=== PATIENT | male | born 1985 | race Hispanic/Latino ===

== ENCOUNTER 2017-01-31 08:57 | Emergency (ER) | payer OTHER ==
[2017-01-31 09:01] VITALS: BMI 27.6
[2017-01-31 09:03] VITALS: BP 124/54; PULSE 56; RESP 20; TEMP 97.8; O2SAT 98
--- NOTE | 2017-01-31 09:56 | ED PDOC ---
HPI: Abdomen Time Seen by Provider: 01/31/17 09:21 Chief Complaint (Nursing): Abdominal Pain History Per: Patient History/Exam Limitations: no limitations Onset/Duration Of Symptoms: Sudden Onset (just tpa) Current Symptoms Are (Timing): Still Present Severity: Moderate Location Of Pain/Discomfort: LLQ Quality Of Discomfort: Sharp Associated Symptoms: denies: Fever, Chills, Nausea, Vomiting, Diarrhea, Loss Of Appetite, Back Pain, Chest Pain, Constipation, Urinary Symptoms Exacerbating Factors: None Alleviating Factors: None Additional History Per: Patient Additional Complaint(s): Pt to ER c/o left flank and abdominal pain; sudden onset 30 minutes prior to arrival in ER. Pt denies any N/V/D or fever; pt denies any pain with urination. no trauma Past Medical History Reviewed: Historical Data, Nursing Documentation, Vital Signs Vital Signs: Last Vital Signs Temp 97.8 F 01/31/17 09:26 Pulse 56 L 01/31/17 09:26 Resp 20 01/31/17 09:26 BP 124/54 L 01/31/17 09:26 Pulse Ox 98 01/31/17 09:56 - Medical History PMH: No Chronic Diseases - Surgical History Surgical History: No Surg Hx - Family History Family History: States: Unknown Family Hx - Home Medications Home Medications: Ambulatory Orders Medication Instructions Recorded Tamsulosin [Flomax] 0.4 mg PO DAILY #20 cap 01/31/17 oxyCODONE/Acetaminophen [Percocet 1 ea PO QID PRN #20 tab 01/31/17 5/325 mg Tab] - Allergies Allergies/Adverse Reactions: Allergies Allergy/AdvReac Type Severity Reaction Status Date / Time No Known Allergies Allergy Verified 01/31/17 09:42 Review of Systems ROS Statement: Except As Marked, All Systems Reviewed And Found Negative Constitutional: Negative for: Fever, Chills Cardiovascular: Negative for: Chest Pain, Palpitations Respiratory: Negative for: Cough, Shortness of Breath Gastrointestinal: Positive for: Abdominal Pain. Negative for: Nausea, Vomiting , Diarrhea Genitourinary Male: Negative for: Dysuria, Penile Discharge, Scrotal Pain, Rash , Penile Pain Neurological: Negative for: Weakness, Numbness Physical Exam - Reviewed Nursing Documentation Reviewed: Yes Vital Signs Reviewed: Yes - Physical Exam Appears: Positive for: Uncomfortable Head Exam: Positive for: ATRAUMATIC, NORMAL INSPECTION, NORMOCEPHALIC Eye Exam: Positive for: Normal appearance, EOMI Neck: Positive for: Normal, Painless ROM, Supple Cardiovascular/Chest: Positive for: Regular Rate, Rhythm, Chest Non Tender. Negative for: Edema, Murmur, Bradycardia, Tachycardia Respiratory: Positive for: Normal Breath Sounds. Negative for: Decreased Breath Sounds, Accessory Muscle Use, Crackles, Rales, Rhonchi, Stridor, Wheezing Gastrointestinal/Abdominal: Positive for: Normal Exam, Bowel Sounds, Soft. Negative for: Tenderness Male Genital Exam: Positive for: normal genitalia, normal prostate, other (chap with nurse). Negative for: scrotum tenderness (R), scrotum tenderness (L), testicular tenderness (R), testicular tenderness (L) Back: Positive for: Normal Inspection. Negative for: L CVA Tenderness, R CVA Tenderness, Vertebral Tenderness Extremity: Positive for: Normal ROM. Negative for: Tenderness, Pedal Edema, Calf Tenderness, Capillary Refill, Deformity Neurologic/Psych: Positive for: Alert, slip presser II-XII, Oriented. Negative for: Motor/Sensory Deficits - Laboratory Results Result Diagrams: 01/31/17 11:00 01/31/17 11:00 - ECG O2 Sat by Pulse Oximetry: 98 Pulse Ox Interpretation: Normal - Progress ED Course And Treament: advise not to drive on percocet for pain. close f/u with urology. Re-evaluation Time: 11:30 Condition: Improved Disposition - Clinical Impression Clinical Impression: Renal calculus, left - Patient ED Disposition Is Patient to be Admitted: No Counseled Patient/Family Regarding: Studies Performed, Diagnosis, Need For Followup, Rx Given - Disposition Referrals: Suzanna Lara MD [Medical Doctor] - (2 to 3 ) Disposition: Routine/Home Disposition Time: 11:30 Condition: GOOD Prescriptions: oxyCODONE/Acetaminophen [Percocet 5/325 mg Tab] 1 ea PO QID PRN #20 tab PRN Reason: Pain, Moderate (4-7) Tamsulosin [Flomax] 0.4 mg PO DAILY #20 cap Instructions: Renal Colic (ED) Forms: [employer] (Gambian)
[2017-01-31] MEDS ORDERED: Sodium Chloride 0.9% 500 ML IV ONE (09:57)
[2017-01-31 11:07] LABS: BASO % 0.5 % (0.0-2.0); EOS # 0.1 K/uL (0.0-0.7); EOS % 1.6 % (0.0-4.0); HEMATOCRIT 44.5 % (35.0-51.0); LYMPH # 2.2 K/uL (1.0-4.3); LYMPH % 27.7 % (20.0-40.0); MEAN CELL VOLUME 87.6 fl (80.0-94.0); MEAN CORPUSCULAR HEMOGLOBIN 28.9 pg (27.0-31.0); MEAN CORPUSCULAR HGB CONC 32.9 g/dL (33.0-37.0); MEAN PLATELET VOLUME 9.9 fl (7.2-11.7); MONO # 0.5 K/uL (0.0-0.8); MONO % 6.5 % (0.0-10.0); NEUT # 5.1 K/uL (1.8-7.0); NEUT % 63.7 % (50.0-75.0); NRBC % 0.8 % (0.0-0.0); WHITE BLOOD COUNT 7.9 K/uL (4.8-10.8)
--- NOTE | 2017-01-31 11:15 | CT ---
PROCEDURE: CT Abdomen and Pelvis without intravenous contrast HISTORY: left flank pain r/o stone COMPARISON: None. TECHNIQUE: Unenhanced study. Neither oral nor intravenous contrast administered. Radiation dose: Total exam DLP = 722.22 mGy-cm. This CT exam was performed using one or more of the following dose reduction techniques: Automated exposure control, adjustment of the mA and/or kV according to patient size, and/or use of iterative reconstruction technique. FINDINGS: LOWER THORAX: Unremarkable. LIVER: Unremarkable. No gross lesion or ductal dilatation. GALLBLADDER AND BILE DUCTS: Unremarkable. PANCREAS: Unremarkable. No gross lesion or ductal dilatation. SPLEEN: Unremarkable. ADRENALS: Unremarkable. No mass. KIDNEYS AND URETERS: Obstructing calculus within 2 cm of the left ureterovesical junction. The calculus measures 2 x 3 mm. Proximal left hydroureter and hydronephrosis identified. Additional (3) nonobstructing upper tract calculi identified. Non larger than 4 mm. Right kidney and ureter: Unremarkable. VASCULATURE: Unremarkable. No aortic aneurysm. BOWEL: Unremarkable. No obstruction. No gross mural thickening. APPENDIX: Unremarkable. Normal appendix. PERITONEUM: Unremarkable. No free fluid. No free air. LYMPH NODES: Unremarkable. No enlarged lymph nodes. BLADDER: Unremarkable. REPRODUCTIVE: Unremarkable. BONES: No acute fracture. OTHER FINDINGS: None. IMPRESSION: Distal obstructing left ureteral calculus less than 2 cm from the left ureterovesical junction measuring 2 x 3 mm. Nonobstructing upper tract calculi left kidney only.
[2017-01-31 11:17] LABS: ALB/GLOB RATIO 1.6 (1.0-2.1); ALKALINE PHOSPHATASE 49 U/L (38-126); ALT/SGPT 83 U/L (21-72); AMYLASE 60 U/L (30-110); AST/SGOT 45 U/L (17-59); BILIRUBIN,TOTAL 0.5 mg/dl (0.2-1.3); BLOOD UREA NITROGEN 15 mg/dl (9-20); CALCIUM 9.5 mg/dL (8.4-10.2); CARBON DIOXIDE 28 mmol/L (22-30); CHLORIDE 104 mmol/L (98-107); GFR AFRICAN-AMERICAN > 60; GLUCOSE,RANDOM 135 mg/dL (75-110); LIPASE 109 U/L (23-300); POTASSIUM 4.5 MMOL/L (3.6-5.0); SODIUM 142 mmol/l (132-148); TOTAL PROTEIN 7.3 G/DL (6.3-8.2)
--- NOTE | 2017-02-01 09:27 | CARD ---
APPROVED REPORT EKG Measurement Heart [id number] <Conclusion> Sinus bradycardia Otherwise normal ECG
== END 2017-01-31 12:27 | disposition home or self-care (01) ==
LOC: H.ER 08:57
DX: N20.2 Calculus of kidney with calculus of ureter (principal)
CPT/HCPCS: 74176; 80053; 82150; 83690; 84484; 85025; 93005; 96374; 99283; J1885; J7040